=== PATIENT | female | born 1995 | race Two or more races ===

== ENCOUNTER → 2021-09-06 | Outpatient (REF) | payer OTHER | LOC: M WUC 09:27 | PROVIDERS: ATTEND Internal Medicine | DX: J02.9 Acute pharyngitis, unspecified (principal) ==

== ENCOUNTER 2022-08-18 07:33 | Inpatient (IN) | payer OTHER ==
[2022-08-18] VITALS (11 sets, daily range): BP systolic 102–141; BP diastolic 52–73
[~2022-08-18] VITALS: Ht 157.5 cm; Wt 132.4 kg
[2022-08-18] MEDS ORDERED: TUMS500C PO (07:51)
[2022-08-18] MEDS ORDERED: PRENTAB53 PO (07:51)
[2022-08-18] MEDS ORDERED: HOME MED LIST COMPLETE! XX SCH (07:55)
[2022-08-18] MEDS ORDERED: METHYLERGONOVINE MALEATE 0.2MG/ML 1ML VIAL IM PRN (08:20)
[2022-08-18] MEDS ORDERED: OXYTOCIN DRIP 30 UNITS in IV 1 EA IV PRN (08:20)
[2022-08-18] MEDS ORDERED: LR 1,000 ML IV SCH (08:20)
[2022-08-18] MEDS ORDERED: CARBOPROST TROMETHAMINE 250 MCG/ML AMP IM PRN (08:20)
[2022-08-18] MEDS ORDERED: LIDOCAINE 1% MDV 20ML VIAL INFIL PRN (08:20)
[2022-08-18] MEDS ORDERED: TRANEXAMIC ACID INJection 1,000 MG in NS 100 ML IV PRN (08:20)
[2022-08-18] MEDS ORDERED: LACTATED RINGER'S 1000 ML IV PRN (08:20)
[2022-08-18 08:34] LABS: HEMATOCRIT 34.7 % (36.0-47.0); HEMOGLOBIN 11.9 g/dl (12.0-15.5); MEAN CORPUSCULAR HEMOGLOBIN 29.5 pg (27.0-33.0); MEAN CORPUSCULAR HGB CONC 34.3 g/dl (32.0-36.5); MEAN CORPUSCULAR VOLUME 85.9 fl (80.0-96.0); PLATELET COUNT, AUTOMATED 329 10^3/uL (150-450); RED BLOOD COUNT 4.04 10^6/uL (4.00-5.40); WHITE BLOOD COUNT 10.9 10^3/uL (4.0-10.0)
[2022-08-18 10:21] LABS: GLUCOSE,RANDOM 118 MG/DL (LESS THAN 200)
[2022-08-18] MEDS ORDERED: miSOPROStol 50MCG 1/2 TABLET PO ONE (10:50)
[2022-08-18] MEDS: miSOPROStol 25MCG 1/4 TABLET PO SCH ×2 (18:20→22:00)
[2022-08-19] VITALS (27 sets, daily range): BP systolic 95–146; BP diastolic 55–92
[2022-08-19] MEDS ORDERED: ONDANSETRON 4MG 2ML VIAL IV PRN (00:10)
[2022-08-19] MEDS ORDERED: diphenhydrAMINE 50MG/ML VIAL IV PRN (00:10)
[2022-08-19] MEDS ORDERED: FENTANYL/ROPIVACAINE/NACL BAG 100 ML EPIDURAL SCH (00:10)
[2022-08-19] MEDS ORDERED: LR 500 ML IV PRN (00:10)
[2022-08-19] MEDS ORDERED: EPIDURAL/PCA KEYS XX PRN (00:10)
[2022-08-19] MEDS ORDERED: NALOXONE INJ 0.4MG/1ML VIAL IV PRN (00:10)
[2022-08-19] MEDS ORDERED: ePHEDrine SULFATE 25 MG/5 ML(5MG/ML) SYRINGE IVP PRN (00:10)
[2022-08-19 07:18] LABS: CORD GAS ABE A -9.4; CORD GAS HCO3 A 19.3 MEQ/L; CORD GAS O2 SAT A 62.7 %; CORD GAS PCO2 A 52.4 mmHg; CORD GAS PH A 7.183 UNITS; CORD GAS PO2 A 29.3 mmHg; CORD GAS SBC A 16.4 MEQ/L; CORD GAS TCO2 A 20.9 MEQ/L
[2022-08-19 07:19] LABS: CORD GAS ABE V -7.5; CORD GAS HCO3 V 20.6 MEQ/L; CORD GAS O2 SAT V 47.9 %; CORD GAS PCO2 V 52.2 mmHg; CORD GAS PH V 7.215 UNITS; CORD GAS PO2 V 22.2 mmHg; CORD GAS SBC V 17.4 MEQ/L; CORD GAS TCO2 V 22.2 MEQ/L
[2022-08-19] MEDS ORDERED: DOCUSATE SODIUM 100MG CAPSULE PO PRN (07:25)
[2022-08-19] MEDS ORDERED: RHOGAM 300MCG (1500IU) INJ IM SCH (07:25)
[2022-08-19] MEDS ORDERED: ACETAMINOPHEN TAB 650MG DOSE (2X325MG) PO PRN (07:25)
[2022-08-19] MEDS ORDERED: METHYLERGONOVINE MALEATE 0.2 MG TAB PO PRN (07:25)
[2022-08-19] MEDS ORDERED: DIBUCAINE 1% OINTMENT 30GM TOP PRN (07:25)
[2022-08-19] MEDS ORDERED: OXYTOCIN DRIP 30 UNITS in IV 1 EA IV SCH (07:25)
[2022-08-19] MEDS: IBUPROFEN 600MG TAB PO PRN (08:55)
[2022-08-19] MEDS: PRENATAL VITAMINS CHEWABLE TABLET PO SCH (10:00)
[2022-08-19] MEDS: ACETAMINOPHEN 500 MG TAB PO PRN ×2 (13:29→19:30)
[2022-08-19] MEDS: IBUPROFEN 800 MG TAB PO PRN (16:51)
[2022-08-20] MEDS: IBUPROFEN 800 MG TAB PO PRN ×2 (00:07→14:50)
[2022-08-20 05:28] VITALS: BP 111/60
[2022-08-20] MEDS: ACETAMINOPHEN 500 MG TAB PO PRN ×2 (06:21→19:26)
[2022-08-20] MEDS: PRENATAL VITAMINS CHEWABLE TABLET PO SCH (08:21)
[2022-08-20 18:00] VITALS: BP 136/62
[2022-08-21] MEDS: ACETAMINOPHEN 500 MG TAB PO PRN (02:03)
[2022-08-21] MEDS: IBUPROFEN 600MG TAB PO PRN (05:41)
[2022-08-21 06:00] VITALS: BP 118/63
[2022-08-21 07:15] VITALS: BP 118/63
[2022-08-21] MEDS: PRENATAL VITAMINS CHEWABLE TABLET PO SCH (07:24)
[2022-08-21] MEDS ORDERED: MEASLES,MUMPS,RUBELLA VACCINE INJ (MMR-II) SC.IMMUN ONE (09:00)
== END 2022-08-21 12:00 | disposition home or self-care (01) | DRG 807 ==
LOC: M LDI 07:33 → M OBS 08-19 09:49
PROVIDERS: ADMIT Registered Nurse; ATTEND Obstetrics & Gynecology
PROC: 3E0P7GC Introduction of Other Therapeutic Substance into Female Reproductive, Via Natural or Artificial Opening (ICD-10-PCS; 2022-08-18)
PROC: 10E0XZZ Delivery of Products of Conception, External Approach (ICD-10-PCS; principal; 2022-08-19)
PROC: 0KQM0ZZ Repair Perineum Muscle, Open Approach (ICD-10-PCS; 2022-08-19)
DX: O24.420 Gestational diabetes mellitus in childbirth, diet controlled (principal); Z37.0 Single live birth; O48.0 Post-term pregnancy; D64.9 Anemia, unspecified; O99.214 Obesity complicating childbirth; E66.9 Obesity, unspecified; O99.02 Anemia complicating childbirth; Z3A.40 40 weeks gestation of pregnancy; O70.1 Second degree perineal laceration during delivery

== ENCOUNTER → 2024-12-17 | Outpatient (CLI) | payer OTHER ==
[~2024-12-17] VITALS: Ht 157.5 cm; Wt 123.3 kg
[~2024-12-17] MED LIST: ACET-1349 PO; PRENTAB53 PO; TUMS500C PO; VITA100T14 PO
[2024-12-17 14:37] VITALS: BP 109/55
== END ==
LOC: M LDO 13:56
PROVIDERS: ATTEND Specialist
DX: O36.8130 Decreased fetal movements, third trimester, not applicable or unspecified (principal); Z3A.29 29 weeks gestation of pregnancy
CPT/HCPCS: 59025; 76815; G0463

== ENCOUNTER → 2025-02-03 | Outpatient (REF) | payer OTHER ==
[~2025-02-03] MED LIST changes: -VITA100T14 PO; +VITA100T69 PO
== END ==
LOC: M SFHCWAGY 16:49
PROVIDERS: ATTEND Student in an Organized Health Care Education/Training Program
DX: Z36.85 Encounter for antenatal screening for Streptococcus B (principal); Z3A.36 36 weeks gestation of pregnancy

== ENCOUNTER → 2025-02-04 | Outpatient (CLI) | payer OTHER ==
[2025-02-04 13:05] LABS: PLATELET COUNT, AUTOMATED 283 10^3/uL (150-450)
[2025-02-04 13:42] LABS: FREE T4 1.05 NG/DL (0.89-1.76)
[2025-02-04 13:43] LABS: ALT/SGPT 11 U/L (7.0-40); AST/SGOT 16 U/L (<34); CALCIUM LEVEL 9.1 MG/DL (8.5-10.1); CARBON DIOXIDE LEVEL 25 MMOL/L (20-31); CHLORIDE LEVEL 105 MMOL/L (98-107); CREATININE FOR GFR 0.48 MG/DL (0.55-1.30); GLOMERULAR FILTRATION RATE > 90.0 (>60); POTASSIUM SERUM 4.3 MMOL/L (3.5-5.1); SODIUM LEVEL 137 MMOL/L (136-145)
== END ==
LOC: M LAB 11:25
PROVIDERS: ATTEND Student in an Organized Health Care Education/Training Program
DX: Z34.83 Encounter for supervision of other normal pregnancy, third trimester (principal)

== ENCOUNTER 2025-02-14 17:52 | Outpatient (CLI) | payer OTHER ==
[~2025-02-14] VITALS: Ht 157.5 cm; Wt 127.6 kg
[2025-02-14] MEDS ORDERED: OMEP10CASR PO (18:11)
[2025-02-14 18:13] VITALS: BP 125/59
[2025-02-14 19:17] LABS: APPEARANCE, URINE CLEAR (CLEAR); BACTERIA, URINE AUTO 1+ (NEGATIVE); BILIRUBIN, URINE AUTO NEGATIVE (NEGATIVE); BLOOD, URINE BLOOD NEGATIVE (NEGATIVE); GLUCOSE, URINE (UA) AUTO NEGATIVE (NEGATIVE); KETONE, URINE AUTO NEGATIVE (NEGATIVE); LEUKOCYTE ESTERASE, URINE AUTO NEGATIVE (NEGATIVE); NITRITE, URINE AUTO NEGATIVE (NEGATIVE); PROTEIN, URINE AUTO NEGATIVE (NEGATIVE); RBC, URINE AUTO 1 /HPF (0-3); SPECIFIC GRAVITY URINE AUTO 1.003 (1.002-1.035); SQUAMOUS EPITHELIAL CELL UR AU 5 /HPF (0-6); UROBILINOGEN, URINE AUTO 0.2 mg/dL (0.0-2.0); WBC, URINE AUTO 1 /HPF (0-3)
[2025-02-14] MEDS ORDERED: VALA500T5 PO (19:26)
== END 2025-02-14 19:31 | disposition home or self-care (01) ==
LOC: M LDO 17:52
PROVIDERS: ATTEND Specialist
DX: O26.893 Other specified pregnancy related conditions, third trimester (principal); R10.30 Lower abdominal pain, unspecified; M54.50 Low back pain, unspecified; Z3A.37 37 weeks gestation of pregnancy; Z86.32 Personal history of gestational diabetes
CPT/HCPCS: 59025; 81001; G0463

== ENCOUNTER 2025-02-28 00:22 | Inpatient (IN) | payer OTHER ==
[2025-02-28] VITALS (46 sets, daily range): BP systolic 104–145; BP diastolic 53–87; O2SAT 99
[~2025-02-28] VITALS: Ht 157.5 cm; Wt 128.2 kg
[~2025-02-28 00:22] MED LIST changes: +OMEP10CASR PO; +VALA500T5 PO
[2025-02-28] MEDS ORDERED: OXYTOCIN INJ 10UNITS/ML 1ML VIAL IM PRN (00:50)
[2025-02-28] MEDS ORDERED: TRANEXAMIC ACID INJection 1,000 MG in NS 100 ML IV PRN (00:50)
[2025-02-28] MEDS ORDERED: CARBOPROST TROMETHAMINE 250 MCG/ML AMP IM PRN (00:50)
[2025-02-28] MEDS ORDERED: LIDOCAINE 1% MDV 20 ML VIAL INFIL PRN (00:50)
[2025-02-28] MEDS ORDERED: METHYLERGONOVINE MALEATE 0.2 MG/ML 1 ML VIAL IM PRN (00:50)
[2025-02-28] MEDS ORDERED: OXYTOCIN DRIP 30 UNITS in IV 1 EA IV PRN (00:50)
[2025-02-28 01:48] LABS: PLATELET COUNT, AUTOMATED 285 10^3/uL (150-450)
[2025-02-28] MEDS ORDERED: HOME MED LIST COMPLETE! XX SCH (02:10)
[2025-02-28 02:39] LABS: HIV 1&2 SCREEN NEGATIVE (NEGATIVE)
[2025-02-28 02:47] LABS: HEPATITIS C VIRUS ABY INDEX < 0.02 INDEX (<0.8)
[2025-02-28] MEDS: miSOPROStol 50 MCG 1/2 TABLET PO SCH (03:54)
[2025-02-28] MEDS: LACTATED RINGER'S 1000 ML IV STA (10:41)
[2025-02-28] MEDS: OXYTOCIN DRIP 30 UNITS in IV 1 EA IV SCH (10:41)
[2025-02-28] MEDS ORDERED: FENTANYL 2 MCG/ML ROPIVACAINE 0.2% IN 0.9% NACL 100 ML IVBAG As Ordered ONE (11:01)
[2025-02-28] MEDS ORDERED: EPIDURAL/PCA KEYS XX PRN ×2 (11:05→12:20)
[2025-02-28] MEDS: LR 1,000 ML IV SCH (11:29)
[2025-02-28] MEDS: FENTANYL/ROPIVACAINE/NACL BAG 100 ML EPIDURAL SCH (12:05)
[2025-02-28] MEDS ORDERED: LR 500 ML IV PRN (12:20)
[2025-02-28] MEDS ORDERED: NALOXONE INJ 0.4 MG/1 ML VIAL IV PRN (12:20)
[2025-02-28] MEDS ORDERED: diphenhydrAMINE 50 MG/ML VIAL IV PRN (12:20)
[2025-02-28] MEDS ORDERED: ONDANSETRON 4MG 2ML VIAL IV PRN (12:20)
[2025-03-01 00:27] VITALS: BP 112/67; O2SAT 96
[2025-03-01] MEDS ORDERED: RHOGAM 300MCG (1500IU) INJ IM SCH (00:45)
[2025-03-01] MEDS ORDERED: METHYLERGONOVINE MALEATE 0.2 MG TAB PO PRN (00:45)
[2025-03-01] MEDS ORDERED: DIBUCAINE 1% OINTMENT 30 GM TOP PRN (00:45)
[2025-03-01] MEDS ORDERED: IBUPROFEN 600 MG TAB PO PRN (00:45)
[2025-03-01] MEDS ORDERED: ACETAMINOPHEN 325 MG TAB PO PRN (00:45)
[2025-03-01] MEDS: ACETAMINOPHEN 500 MG TAB PO PRN (01:28)
[2025-03-01 06:07] VITALS: BP 119/56; O2SAT 95
[2025-03-01 07:26] LABS: PLATELET COUNT, AUTOMATED 230 10^3/uL (150-450)
[2025-03-01] MEDS: IBUPROFEN 800 MG TAB PO PRN (07:49)
[2025-03-01] MEDS: PRENATAL VITAMINS CHEWABLE TABLET PO SCH (07:50)
[2025-03-01] MEDS: DOCUSATE SODIUM 100 MG CAPSULE PO PRN (09:10)
[2025-03-01 18:00] VITALS: BP 126/78; O2SAT 99
[2025-03-02 05:43] VITALS: BP 123/58; O2SAT 98
[2025-03-02] MEDS ORDERED: IBUP80TA PO (14:25)
[2025-03-02] MEDS ORDERED: ACET-683 PO (14:25)
[2025-03-03] MEDS ORDERED: MEASLES,MUMPS,RUBELLA VACCINE INJ (MMR-II) SC.IMMUN ONE (09:00)
== END 2025-03-02 16:00 | disposition home or self-care (01) | DRG 807 ==
LOC: M LDI 00:22 → M OBS 03-01 00:04
PROVIDERS: ADMIT Advanced Practice Midwife; ATTEND Advanced Practice Midwife
PROC: 10E0XZZ Delivery of Products of Conception, External Approach (ICD-10-PCS; principal; 2025-02-28)
PROC: 3E033VJ Introduction of Other Hormone into Peripheral Vein, Percutaneous Approach (ICD-10-PCS; 2025-02-28)
PROC: 3E0P7GC Introduction of Other Therapeutic Substance into Female Reproductive, Via Natural or Artificial Opening (ICD-10-PCS; 2025-02-28)
DX: O99.214 Obesity complicating childbirth (principal); Z37.0 Single live birth; E66.01 Morbid (severe) obesity due to excess calories; Z3A.39 39 weeks gestation of pregnancy